=== PATIENT | female | born 2005 | race African-American/Black ===

== ENCOUNTER 2023-09-12 09:02 | Emergency (ER) | payer MEDICAID ==
[~2023-09-12] VITALS: Ht 162.6 cm; Wt 65.0 kg
[2023-09-12 09:11] VITALS: BP 109/71; PULSE 75; RESP 15; TEMP 98.1; O2SAT 99
[2023-09-12 09:48] LABS: BASOPHILS % 0.6 % (0.0-2.0); EOSINOPHILS % 1.2 % (0.0-5.0); HEMATOCRIT. 32.2 % (36.0-48.0); HEMOGLOBIN. 9.9 g/dL (12.0-16.0); LYMPHOCYTES % 47.9 % (20.0-50.0); MEAN CORPUSCULAR HEMOGLOBIN 21.1 pg (28.0-32.0); MEAN CORPUSCULAR HGB CONC 30.7 g/dL (31.0-37.0); MEAN CORPUSCULAR VOLUME 68.8 fL (81.0-99.0); MEAN PLATELET VOLUME 7.9 fl (7.4-10.4); MONOCYTES % 7.3 % (2.0-8.0); PLATELET 328 x1000/uL (130-400); RED BLOOD CELL COUNT 4.68 mill/uL (4.2-5.4); RED CELL DISTRIBUTION WIDTH 18.3 % (11.6-14.6); WHITE BLOOD COUNT 8.5 x1000/uL (4.5-11.0)
[2023-09-12 09:53] LABS: DIFFERENTIAL COMMENT 1
[2023-09-12 09:54] LABS: ADD RBC MORPHOLOGY YES
[2023-09-12 09:59] LABS: HCG SCREEN POSITIVE
[2023-09-12 10:22] LABS: ALANINE AMINOTRANSFERASE 8 IU/L (10-49); ALBUMIN 3.9 g/dL (3.2-4.8); ASPARTATE AMINOTRANSFERASE 17 IU/L (<34); BILIRUBIN TOTAL 0.4 mg/dL (0.1-1.0); CARBON DIOXIDE 23 mEq/L (21-32); CHLORIDE 106 mEq/L (98-107); CREATININE 0.4 mg/dL (0.6-1.0); GLUCOSE 79 mg/dL (70-105); POTASSIUM 3.7 mEq/L (3.5-5.1); PROTEIN TOTAL 7.4 g/dL (6.0-8.3); SODIUM 136 mEq/L (136-145)
[2023-09-12 10:23] LABS: UREA NITROGEN BLOOD < 5 mg/dL (9-23)
[2023-09-12 11:32] LABS: ANISOCYTOSIS 1+; PLATELET ESTIMATE NORMAL
[2023-09-12 11:33] LABS: MICROCYTOSIS 2+
== END 2023-09-12 10:14 | disposition left against medical advice (07) ==
LOC: ER 09:02
DX: R05.9 Cough, unspecified (principal); Z53.21 Procedure and treatment not carried out due to patient leaving prior to being seen by health care provider
CPT/HCPCS: 36415; 71045; 80053; 84703; 85025; 85379; 99281; 99284

== ENCOUNTER 2024-07-31 05:53 | Emergency (ER) | payer OTHER, MEDICAID ==
[~2024-07-31] VITALS: Ht 160 cm; Wt 63.0 kg
[2024-07-31 05:55] VITALS: O2SAT 99
[2024-07-31] MEDS: BACITRACIN 14GM TUBE TOP ONE (06:45)
[2024-07-31] MEDS: ACETAMINOPHEN 325MG TABLET PO ONE (06:45)
[2024-07-31] MEDS ORDERED: TOPUD PO (08:29)
[2024-07-31] MEDS ORDERED: BO1 TP (08:29)
[2024-07-31 08:59] VITALS: BP 100/56; PULSE 90; RESP 16; TEMP 37.11408; O2SAT 99
== END 2024-07-31 09:00 | disposition home or self-care (01) ==
LOC: ER 05:53
DX: T14.8XXA Other injury of unspecified body region, initial encounter (principal); M54.50 Low back pain, unspecified; X58.XXXA Exposure to other specified factors, initial encounter; Y93.89 Activity, other specified; Y92.89 Other specified places as the place of occurrence of the external cause; Y99.8 Other external cause status
CPT/HCPCS: 99283